=== PATIENT | female | born 1965 | race Hispanic/Latino ===

== ENCOUNTER 2016-11-24 21:53 | Emergency (ER) | payer SELFPAY ==
[~2016-11-24] VITALS: Ht 149.9 cm; Wt 95.4 kg
[~2016-11-24 21:53] MED LIST: CITA20TA PO; PROT40T PO
[2016-11-24 21:54] VITALS: BP 137/81; PULSE 78; RESP 16; O2SAT 98
--- NOTE | 2016-11-24 22:34 | ED.REPORT ---
HPI-Chest Pain 40 and Over Date of Service November 24, 2016 ED Provider: Dr. Hossein Moore D.O. A 51 year old female with a history of hypertension, asthma, and depression presents to the ED reporting chest pain onset two days ago. The pain is described as "pressure," with radiation to her left arm. The patient also reports headache, recent hypertension (over 180 systolic), and bilateral eye redness. She denies other symptoms. Last night the patient took ASA with no relief. She ran out of her hypertension medication some time ago and has been unable to refill her prescription. Nursing Notes Stated Complaint: CHEST PAIN X 2 DAYS Chief Complaint: Chest Pain Nursing Notes Reviewed: Yes Allergies: Coded Allergies: promethazine (Verified Allergy, Intermediate, anxious, 07/02/15) codeine (Verified Allergy, Unknown, 07/02/15) morphine (Unverified Allergy, Unknown, 11/24/16) Uncoded Allergies: NARCOTICS (Allergy, Severe, Shortness of Breath, 01/08/14) SWELLING, SOB Scheduled Citalopram-Expunged Drug, Do Not Renew! (Citalopram-Expunged Drug, Do Not Renew! ) 20 Mg Tablet 20 MG PO DAILY Pantoprazole-Expunged Drug, Do Not Renew! (Protonix-Expunged Drug, Do Not Renew! ) 40 Mg Tablet.dr 20 MG PO DAILY General Time Seen by MD: 22:33 Chief Complaint Chest pain Hx Obtained From: Patient Arrived By: Walk-in Sudden in Onset?: No Onset Occurred: 2 days ago Symptom Duration: Since onset Location: : Chest left: Chest right Quality: Painful, Pressure Radiation: : Arm left Severity: Current: Moderate Severity: Maximum: Moderate Pertinent Negative: Relieved by nothing Context Related History: Reports: Asthma, Hypertension Recent Healthcare: No recent doctor visit Past Medical History Past Medical History Hx HTN- not taking meds b/c her Rx is in [place]. Reports: Asthma, Hypertension Reports: Depression, Urinary tract infection Past Surgical History Reports: Appendectomy Smoking History Never Smoker Social History Alcohol Use: Denies alcohol use Drug Use: Denies drug use Other Social History: Good social support Ambulatory Status Independent Review of Systems Review of Systems Note: + Hypertension (over 180 systolic) Constitutional: Denies: Fever Respiratory: Denies: Non-productive cough, Shortness of breath Cardiovascular: Reports: Chest pain GI: Denies: Diarrhea, Vomiting Neurologic: Reports: Headache Complete sys rev & neg: except as marked. Eyes: Reports: Redness bilateral Physical Exam Initial Vital Signs Vital Signs (First) Date Time Temp Pulse Resp B/P Pulse Ox O2 Delivery O2 Flow Rate FiO2 11/24/16 21:54 36.7 78 16 137/81 98 Room Air Initial VS: Reviewed Head / Eyes: Atraumatic, Normocephalic, PERRL ENT: Conjunctiva normal, No scleral icterus Neck: Supple, Full range of motion Skin: Warm, Dry, No cyanosis Neurologic: Alert, Oriented, Nonfocal Psychiatric: Mood/affect normal, Behavior normal, Normal thought content General/Constitutional: Awake, Alert, No acute distress Respiratory / Chest: Breath sounds NL, Breath sounds = bilat, No respiratory distress Cardiovascular: Heart rate NL, Regular rhythm, Heart sounds NL Abdomen: Soft, Non-tender Interpretation & Diagnostics Lab Results Interpretation Result Diagram: 11/24/168 11/24/16 2258 Test 11/24/16 22:58 11/25/16 01:50 White Blood Count 9.2th/mm3 (3.8-10.1) Red Blood Count 4.17mil/mm3 (3.90-5.20) Hemoglobin 12.3g/dL (12.0-15.6) Hematocrit 36.6% (35.0-46.0) Mean Corpuscular Volume 87.8fL (81-100) Mean Corpuscular Hemoglobin 29.5pg (27.0-35.0) Mean Corpuscular Hemoglobin Concent 33.6% (32.0-37.0) Red Cell Distribution Width 12.7% (12.3-15.4) Platelet Count 239bil/L (150-400) Neutrophils (%) (Auto) 61.4% (40-74) Lymphocytes (%) (Auto) 30.7% (14-46) Monocytes (%) (Auto) 5.4% (4-12) Eosinophils (%) (Auto) 2.3% (0-5) Basophils (%) (Auto) 0.1% (0-3) D-Dimer 0.59mg/L FEU (<0.50) Sodium Level 140mEq/L (134-144) Potassium Level 3.7mEq/L (3.5-5.2) Chloride Level 102mEq/L (97-108) Carbon Dioxide Level 26mmol/L (18-29) Blood Urea Nitrogen 12mg/dL (6-24) Creatinine 0.47mg/dL (0.57-1.00) Estimat Glomerular Filtration Rate 199mL/min (>59) Glucose Level 146mg/dL (60-99) Calcium Level 9.0mg/dL (8.5-10.1) Magnesium Level 2.1mg/dL (1.6-2.6) Total Bilirubin 0.3mg/dL (0.0-1.2) Aspartate Amino Transf (AST/SGOT) 19U/L (0-50) Alanine Aminotransferase (ALT/SGPT) 18U/L (0-32) Alkaline Phosphatase 83U/L (25-150) Total Protein 6.8g/dL (6.4-8.4) Albumin 3.7g/dL (3.4-5.0) Hold Pardo Top Tube Received (Received) Troponin T 0.010ug/L (0.0-0.011) ECG Interpretation ECG Interpretation: Sinus rhythm rate 77 Probable LVH Time: 22:02 Interpreted by: ED physician ECG Interpretation: Sinus rhythm rate 75 Low voltage, precordial leads No significant changes from previous Time: 02:51 Interpreted by: ED physician X-Ray Chest Interpretation Chest Xray Interpretation: Normal View: Portable, 1 view Interpretation / Wet Read by: Wet read ED physician CT Head Interpretation CONCLUSION: No acute intracranial abnormality. Report transmitted to ED by Steph Tijerina M.D at 11/24/2016 - 11:32:17 AM PDT Study: Head CT no contrast Interpretation / Wet Read by: Interpret - Radiologist CT Chest Interpretation IMPRESSION: No acute occlusive PE. Atherosclerotic disease. Mild groundglass attenuation with areas of air trapping seen with small airway disease. No pulmonary consolidation or mass. Other findings above. Report transmitted to ED by radiologist Steph Tijerina M.D. at 11/25/2016 - 12:48:50 AM PDT Study type: CT pulm angiogram Interpretation / Wet Read by: Interpret - Radiologist Re-Eval/Medical Decision Med Decision/Clinical Course Myocardial infarction ruled out with serial EKGs and troponins. Pulmonary emboli ruled out with CT angios. She is coughing and there is a question of some airspace disease will place her on Zithromax. I discussed with her that she needs to have a follow-up of a lesion on her right kidney. We have given referral to primary care here in town as well as a driver messenger and they can follow-up of this and set up dedicated imaging for the kidney lesion. Otherwise complete the course of antibiotics return if any problems or any new or worsening symptoms. Source of Hx: Old records Time of Eval: 02:08 Patient Status: Condition improved Re-Evaluation/Progress Note: Discussed with patient CT, x-ray, and lab results, diagnosis, and plan for discharge. Follow-up and return to the ER instructions given. Patient agrees with plan for care and all questions were addressed. Counseled Regarding: Diagnosis, Lab results, Need for follow-up, When/why to return to ED Discharge & Departure Shift Change Sign-Out Response to Therapy: Improved Primary Impression: Chest pain Chest pain type: chest pain on breathing Qualified Code: R07.1 - Chest pain on breathing Additional Impression: Headache Headache type: unspecified Headache chronicity pattern: acute headache Intractability: not intractable Qualified Code: R51 - Headache Disposition: Home Discharge Condition All VS Reviewed: Yes Condition: Improved Patient Instructions: Acute Headache (GEN), Chest Pain (ED) Additional Instructions: The heart blood tests were normal. The CAT scan demonstrated airspace disease in the lungs which could be an infection. You will also need to have a follow- up of the lesion seen on her kidney. Finish the Z-Marlo. Motrin as directed for pain. Set up a follow-up with the referral clinic and driver messenger. Return if any problems or any new or worsening symptoms. Watch her blood pressure closely. If it remains persistently elevated she will need to be back on blood pressure medications. Los anlisis de nelly en el corazn fueron normales. La tomografa computarizada demostr dayanara enfermedad del espacio areo en los pulmones que podr a ser dayanara infeccin. Tambin necesitar tener un seguimiento de la lesin vista en hoskins rin. Termine el Z-Marlo. Motrin segn lo indicado para el dolor. Establecer un seguimiento con la clnica de referencia y el cardilogo. Regresar si hay problemas o sntomas nuevos o que empeoran. Starla hoskins presin arterial de cerca. Si permanece persistentemente elevada, tendr que estar de vuelta en los medicamentos para la presin arterial. Referrals: NOPCP (PCP) Clement Farooq MD [facility] Scribe Attestation Portions of this note were transcribed by Hiral De Guzman. I, Dr. Moore, personally performed the history, physical exam, and medical decision-making; I reviewed and confirmed the accuracy of the information in the transcribed note. Signed by: Chantal Estrella, 11/25/2016, 03:35 copies to: Clement Farooq MD; [facility] Hossein Moore DO November 24, 2016 22:34 HIRAL DE GUZMAN November 24, 2016 22:54
[2016-11-24 23:02] VITALS: BP 146/86; PULSE 71; RESP 20; O2SAT 99
[2016-11-24 23:39] VITALS: BP 151/74; PULSE 76; RESP 22; O2SAT 96
[2016-11-24 23:39] LABS: TROPONIN T 0.01 ug/L (0.0-0.011)
[2016-11-24 23:47] LABS: BASOPHILS % (AUTO) 0.1 % (0-3); EOSINOPHILS % (AUTO) 2.3 % (0-5); MONOCYTES % (AUTO) 5.4 % (4-12); Mean Corpuscular Hemoglobin 29.5 pg (27.0-35.0); Mean Corpuscular Volume 87.8 fL (81-100); NEUTROPHILS % (AUTO) 61.4 % (40-74); Platelet Count 239 bil/L (150-400)
[2016-11-24 23:50] LABS: Magnesium 2.1 mg/dL (1.6-2.6)
[2016-11-25 00:56] VITALS: BP 127/75; PULSE 78; RESP 16; O2SAT 98
[2016-11-25] MEDS ORDERED: Albuterol-Ipratropium 3 mL Inhalation Solution NEB ONE (01:00)
[2016-11-25 01:12] VITALS: PULSE 79; RESP 18; O2SAT 98
[2016-11-25 03:18] VITALS: BP 112/68; PULSE 90; RESP 14; O2SAT 98
--- NOTE | 2016-11-25 08:00 | DRSVH ---
PROCEDURE: CT ANGIO CHEST PULMONARY EMBOLISM ([id number]) INDICATIONS: chest pain and short of breath, elevated ddimer TECHNIQUE: After the administration of intravenous contrast, 2 mm thick sections acquired from the pulmonary api jj to the posterior costophrenic angles. 3-dimensional maximum intensity projection (MIP) coronal a nd sagittal reformats were then acquired through the thorax. For radiation dose reduction, the follo wing was used: automated exposure control, adjustment of mA and/or kV according to patient size. COMPARISON: None. FINDINGS: Image quality: Excellent. Pulmonary arteries: Pulmonary arteries are normal in size, and demonstrate no intraluminal filling d efects to suggest central pulmonary embolism. Lungs and pleura: Lungs are clear. No pleural effusions or pneumothorax. Central and peripheral ai rways are patent. Mediastinum: Heart size is normal, without pericardial effusion. No mediastinal or hilar adenopathy . Thoracic aorta is normal in caliber and enhancement. Esophagus is normal in caliber, without hiat al hernia. Bones and chest wall: No suspicious bony lesions. Ribs and thoracic spine appear intact throughout. Thyroid gland is within normal limits. No axillary or supraclavicular adenopathy. Abdomen: 8.7 x 5.3 x 7.5 cm fat-containing lesion in the left suprarenal abdomen likely represents a n adrenal myolipoma. Visualized upper abdominal solid organs appear normal in the early arterial phas e of enhancement. IMPRESSION: 1. No pulmonary embolus. 2. Probable large left adrenal myelolipoma, however other fat-containing neoplastic processes includi ng liposarcoma cannot be differentiated by imaging alone. Dictated by: Kristie Menchaca MD, PhD on 11/25/2016 at 7:52 Approved by: Kristie Menchaca MD, PhD on 11/25/2016 at 7:58
--- NOTE | 2016-11-25 08:28 | DRSVH ---
PROCEDURE: CT BRAIN WITHOUT CONTRAST ([id number]) INDICATIONS: headache, hypertension TECHNIQUE: Noncontrast 4.5 mm thick angled axial sections acquired from the foramen magnum to the vertex, with c oronal reformats. COMPARISON: None. FINDINGS: Image quality: Excellent. CSF spaces: Basal cisterns are patent. No extra-axial fluid collections. Ventricles are normal in size and shape. Brain: No midline shift. No intracranial masses or hemorrhage. Barry-white matter interface is norm al. Skull and face: Calvarium and visualized facial bones are intact, without suspicious lesions. Sinuses: Visualized sinuses and mastoids are clear. IMPRESSION: No acute intracranial disease process. Dictated by: Kristie Menchaca MD, PhD on 11/25/2016 at 8:25 Approved by: Kristie Menchaca MD, PhD on 11/25/2016 at 8:27
--- NOTE | 2016-11-25 09:05 | DRSVH ---
PROCEDURE: X-RAY CHEST ONE VIEW, PORTABLE ([id number]) INDICATIONS: chest pain TECHNIQUE: One view of the chest was acquired. COMPARISON: [facility], , CHEST 1VW (PORTABLE), 09/28/2012, 1:46. FINDINGS: Surgical changes and devices: None. Lungs and pleura: No pleural effusions or pneumothorax. Lungs are clear. Mediastinum: Mediastinal contours appear normal. Heart size is normal. Bones and chest wall: No suspicious bony lesions. Overlying soft tissues appear unremarkable. IMPRESSION: No acute cardiopulmonary disease process. Dictated by: Kristie Menchaca MD, PhD on 11/25/2016 at 9:03 Approved by: Kristie Menchaca MD, PhD on 11/25/2016 at 9:04
== END 2016-11-25 03:26 | disposition home or self-care (01) ==
LOC: SED 21:53
DX: R07.1 Chest pain on breathing (principal); R51 Headache; I10 Essential (primary) hypertension; J45.909 Unspecified asthma, uncomplicated; F32.9 Major depressive disorder, single episode, unspecified; N28.9 Disorder of kidney and ureter, unspecified; Z88.8 Allergy status to other drugs, medicaments and biological substances; Z87.440 Personal history of urinary (tract) infections; Z88.5 Allergy status to narcotic agent
CPT/HCPCS: 36415; 70450; 71010; 71275; 80053; 83735; 84484; 85025; 85378; 93005; 94664; 99285; J7620; Q9967

== ENCOUNTER 2017-03-26 18:26 | Emergency (ER) | payer SELFPAY ==
--- NOTE | 2017-03-26 18:36 | ED.REPORT ---
HPI-Chest Pain 40 and Over Date of Service Mar 26, 2017 ED Provider: Robby Brown DO Pt is a 51 year old female with a history of hypertension who presents to the ED via EMS c/o progressively worsening chest pain onset 1500 today while cleaning her bathroom. She has had chest pain for about one month that worsened today. She described her pain as radiating to her left arm, left-side of jaw, and mid back which was 10/10 severity at its worst, 7/10 after getting nitro by EMS, and is 5/10 now with nitro paste on in the ED. She states that her pain is exacerbated by trying to sit up and bend over, and she couldn't even talk during the worst part of her episode. Additional symptoms include SOB, fatigue, headache, diaphoresis, increased gas, vomting and nausea for which she received medication by her PCP. Pt reports having an adrenal cyst that was benign, that is scheduled to be operated on in [place] in future. Nursing Notes Stated Complaint: CHEST PAIN Nursing Notes Reviewed: Yes Allergies: Coded Allergies: promethazine (Verified Allergy, Intermediate, anxious, 07/02/15) codeine (Verified Allergy, Unknown, 07/02/15) morphine (Unverified Allergy, Unknown, 11/24/16) Uncoded Allergies: NARCOTICS (Allergy, Severe, Shortness of Breath, 01/08/14) SWELLING, SOB Scheduled Citalopram-Expunged Drug, Do Not Renew! (Citalopram-Expunged Drug, Do Not Renew! ) 20 Mg Tablet 20 MG PO DAILY Pantoprazole (Pantoprazole DR) 40 Mg Tablet.dr 40 MG PO DAILY Pantoprazole-Expunged Drug, Do Not Renew! (Protonix-Expunged Drug, Do Not Renew! ) 40 Mg Tablet.dr 20 MG PO DAILY Scheduled PRN Ondansetron ODT (Zofran ODT) 4 Mg Tablet 4 MG PO Q4H PRN PRN For Nausea General Time Seen by MD: 18:36 Chief Complaint Chest pain Hx Obtained From: Patient Arrived By: Ambulance Sudden in Onset?: Yes Onset Occurred: 1 - 4 hours ago Symptom Duration: Constant Location: : Substernal Quality: Painful Radiation: : Arm left: Back: Jaw Severity: Current: Pain level 5 out of 10 Severity: Maximum: Pain level 10 out of 10 Exacerbated by: Movement Relieved by: Nitroglycerin - EMS x 2 Recent Healthcare: No recent hospitalization, Recent doctor visit Similar Sx Previous: No Risk Factors )( CAD Risk Stratification Family history Hypertension Risk factors reviewed )( TAD Risk Stratification Hypertension Risk factors reviewed )( PE Risk Stratification Risk factors reviewed Past Medical History Past Medical History Hx HTN- not taking meds b/c her Rx is in [place]. Reports: Asthma, Hypertension Reports: Depression, Urinary tract infection Past Surgical History Reports: Appendectomy Family History Aunt and Uncle had heart problems Parents only had hypertension Smoking History Never Smoker Social History Alcohol Use: Denies alcohol use Drug Use: Denies drug use Other Social History: Good social support Ambulatory Status Independent Review of Systems Increased gas Constitutional: Reports: Fatigue Respiratory: Reports: Shortness of breath Cardiovascular: Reports: Chest pain GI: Reports: Nausea, Vomiting Skin: Reports Diaphoresis Neurologic: Reports: Headache Complete sys rev & neg: except as marked. Physical Exam Initial Vital Signs Vital Signs (First) Date Time Temp Pulse Resp B/P Pulse Ox O2 Delivery O2 Flow Rate FiO2 03/26/17 18:40 36.8 81 18 125/72 96 Room Air Initial VS: Reviewed Head / Eyes: Atraumatic, Normocephalic Neck: Supple, Full range of motion Extremities: Vascular intact, Neuro intact, No swelling, No tenderness Skin: Warm, Dry, No cyanosis Neurologic: Alert, Oriented, Nonfocal Psychiatric: Mood/affect normal, Behavior normal, Normal thought content General/Constitutional: Awake, Alert Respiratory / Chest: Atraumatic, Breath sounds NL, Breath sounds = bilat, No respiratory distress, No chest tenderness Cardiovascular: Heart rate NL, Regular rhythm, Heart sounds NL No significant leg edema Abdomen: Atraumatic, Soft Tenderness/Guarding/Rebound: Positive: Tender epigastric Interpretation & Diagnostics Lab Results Interpretation Result Diagram: 03/26/17 1848 03/26/17 1848 Test 03/26/17 18:48 03/26/17 20:19 White Blood Count 10.5th/mm3 (3.8-10.1) Red Blood Count 4.48mil/mm3 (3.90-5.20) Hemoglobin 13.3g/dL (12.0-15.6) Hematocrit 38.8% (35.0-46.0) Mean Corpuscular Volume 86.6fL (81-100) Mean Corpuscular Hemoglobin 29.7pg (27.0-35.0) Mean Corpuscular Hemoglobin Concent 34.3% (32.0-37.0) Red Cell Distribution Width 12.6% (12.3-15.4) Platelet Count 224bil/L (150-400) Neutrophils (%) (Auto) 59.3% (40-74) Lymphocytes (%) (Auto) 33.6% (14-46) Monocytes (%) (Auto) 5.5% (4-12) Eosinophils (%) (Auto) 1.2% (0-5) Basophils (%) (Auto) 0.2% (0-3) D-Dimer 0.58mg/L FEU (<0.50) Sodium Level 141mEq/L (134-144) Potassium Level 4.0mEq/L (3.5-5.2) Chloride Level 102mEq/L (97-108) Carbon Dioxide Level 23mmol/L (18-29) Blood Urea Nitrogen 17mg/dL (6-24) Creatinine 0.55mg/dL (0.57-1.00) Estimat Glomerular Filtration Rate 166mL/min (>59) Glucose Level 89mg/dL (60-99) Calcium Level 9.2mg/dL (8.5-10.1) Magnesium Level 2.1mg/dL (1.6-2.6) Total Bilirubin 0.3mg/dL (0.0-1.2) Aspartate Amino Transf (AST/SGOT) 20U/L (0-50) Alanine Aminotransferase (ALT/SGPT) 17U/L (0-32) Alkaline Phosphatase 85U/L (25-150) Total Protein 7.7g/dL (6.4-8.4) Albumin 4.2g/dL (3.4-5.0) Troponin T < 0.010ug/L (0.0-0.011) Pro-B-Type Natriuretic Peptide 74.97pg/mL (0-249) Lipase 43U/L (13-60) ECG Interpretation ECG Interpretation: Sinus rhythm, rate 83 T wave flattening in lateral leads T wave inversion in lead 3 Unchanged from previous on 11/25/16 Time: 18:40 Interpreted by: ED physician X-Ray Chest Interpretation Chest Xray Interpretation: IMPRESSION: No radiographic evidence of acute cardiopulmonary pathology. Dictated by: Ranjit Friedman M.D. on 03/26/2017 at 19:55 Approved by: Ranjit Friedman M.D. on 03/26/2017 at 19:56 View: Portable, 1 view Interpretation / Wet Read by: Interpret - Radiologist CT Chest Interpretation IMPRESSION: 1. No acute pulmonary emboli. 2. Large predominantly fat containing left adrenal mass most consistent with an adrenal myolipoma. No change in recommendation for a 6 month followup adrenal protocol abdomen pelvis CT which is due in July 2017. Dictated by: Ranjit Friedman M.D. on 03/26/2017 at 20:49 Approved by: Ranjit Friedman M.D. on 03/26/2017 at 20:55 Study type: CT pulm angiogram Interpretation / Wet Read by: Interpret - Radiologist Re-Eval/Medical Decision Med Decision/Clinical Course 51-year-old female with a history of adrenal mass, hypertension, and reported family history of coronary artery disease presents with chest pain while walking in [facility] today. Her cardiac workup appears reassuring with serial troponins returning negative and no EKG findings suggestive of acute ischemia. CT PE ruled out a pulmonary embolus and redemonstrated the adrenal mass, which is scheduled for surgery in [place] the near future. Blood pressure was significantly elevated and improved somewhat with nitroglycerin paste. Chest pain persisted despite this and was not responsive to Ativan or a GI cocktail. Toradol was the medication and finally alleviated her chest pain. It does not sound pleuritic in nature. I am uncertain the cause of her pain but feel confident we have ruled out acute or life-threatening dangerous causes of chest pain. She was advised that she needs to have a stress test in the next few weeks, as well as a possible GI consultation to evaluate gastric causes of her lower chest/upper epigastric pain. Source of Hx: Old records Time of Eval: 22:53 Re-Evaluation/Progress Note: Pt rechecked. She states that she still has 7/10 chest pain and doesn't know why. She is pointing to her epigastric area for her pain now. Time of Eval: 23:57 Patient Status: Condition improved Re-Evaluation/Progress Note: Patient rechecked. Discussed plan for discharge. Patient understands and agrees with plan. F/U instructions and RTER warnings given. All questions addressed at this time. Counseled Regarding: Diagnosis, Lab results, Need for follow-up, When/why to return to ED Discharge & Departure Primary Impression: Chest pain Chest pain type: unspecified Qualified Code: R07.9 - Chest pain, unspecified Additional Impressions: Epigastric abdominal pain Shortness of breath Disposition: Home Discharge Condition All VS Reviewed: Yes Condition: Stable Patient Instructions: Chest Pain (ED) Additional Instructions: Thank you for entrusting us with your medical care tonight. Your emergency room visit tonight included an interview, physical exam, an EKG, chest x-ray, chest CT and upper abdominal CT, and treatment for nausea and pain with Toradol and Zofran. Your chest pain initially improved somewhat on nitroglycerin. Your adrenal mass appears stable on CT. There was no evidence of heart attack, pneumonia, pneumothorax, pulmonary embolus. Please follow-up with your primary care provider, call tomorrow for an appointment to continue this workup to determine the cause of your pain. There is no dangerous causes identified here. Other considerations could include gastroenterology evaluation with endoscopy to look for gastritis/ulcer. Also given your family history and the symptoms today, I believe that a stress test in the next week or 2 is important. Please take Protonix 40 mg daily and use ibuprofen as needed for severe pain, as you are allergic to narcotics and Toradol was helpful here. Return to the ER if you develop new or worsening symptoms. Casimiro por confiarnos callaway atencin mdica esta noche. [place]away visita a la teresa de emergencias esta noche incluy dayanara entrevista, examen f sico, EKG, radiografa de trax, TC de trax y TC abdominal superior y tratamiento para nuseas y dolor con Toradol y Zofran. El dolor en el pecho inicialmente mejor algo con nitroglicerina. [place]away masa suprarrenal parece estable en la TC. No hubo evidencia de ataque cardaco, neumona, neumotrax, mbolo pulmonar. Por favor, siga con callaway proveedor de atencin primaria, llame maana para dayanara ayan para continuar con jocelin estudio para determinar la causa de callaway dolor. No hay causas peligrosas identificadas aqu. Otras consideraciones podran incluir la evaluacin gastroenterologa con endoscopia para buscar gastritis / lcera. Tambin dado callaway historial familiar y los sntomas de hoy, creo que dayanara prueba de estrs en la prxima semana o 2 es importante. Por favor, tome Protonix 40 mg al da y use ibuprofen shira sea necesario para el dolor roberto, ya que usted es alrgico a narcticos y Toradol fue til aqu. Regrese a la teresa de emergencias si presenta sntomas nuevos o que empeoran. GI Consult: Dr. Servin Referrals: Pollo Loera MD (PCP) Scribe Attestation Portions of this note were transcribed by Nataly Alarcon. I, Dr. Brown, personally performed the history, physical exam and medical decision-making; I reviewed and confirmed the accuracy of the information in the transcribed note. copies to: Pollo Loera MD, Gary R DO Mar 26, 2017 18:36 Nataly Alarcon Mar 26, 2017 19:15
[2017-03-26 18:40] VITALS: BP 125/72; PULSE 81; RESP 18; O2SAT 96
[2017-03-26] MEDS ORDERED: Nitroglycerin 2% 1 Gm Ointment TOPICAL ONE (18:50)
[2017-03-26 18:51] LABS: BASOPHILS % (AUTO) 0.2 % (0-3); EOSINOPHILS % (AUTO) 1.2 % (0-5); MONOCYTES % (AUTO) 5.5 % (4-12); Mean Corpuscular Hemoglobin 29.7 pg (27.0-35.0); Mean Corpuscular Volume 86.6 fL (81-100); NEUTROPHILS % (AUTO) 59.3 % (40-74); Platelet Count 224 bil/L (150-400)
[2017-03-26 19:05] LABS: TROPONIN T < 0.010 ug/L (0.0-0.011)
[2017-03-26 19:15] LABS: Magnesium 2.1 mg/dL (1.6-2.6)
[2017-03-26] MEDS ORDERED: LidocaineVisc 2%:Antacid 1:1 10 mL Syringe PO ONE (19:50)
[2017-03-26] MEDS ORDERED: LORazepam 0.5 mg Tablet PO ONE (19:55)
--- NOTE | 2017-03-26 19:58 | DRSVH ---
PROCEDURE: X-RAY CHEST ONE VIEW, PORTABLE ([id number]) INDICATIONS: CHEST PAIN TECHNIQUE: One view of the chest was acquired. COMPARISON: [facility], CR, XR CHEST 1VW (PORTABLE[facility] 11[facility]07[facility] 09/28/2012, 1:46. FINDINGS: Surgical changes and devices: None. Lungs and pleura: No pleural effusions or pneumothorax. Lungs are clear. Mediastinum: Mediastinal contours appear normal. Heart size is normal. Bones and chest wall: No suspicious bony lesions. Overlying soft tissues appear unremarkable. IMPRESSION: No radiographic evidence of acute cardiopulmonary pathology. Dictated by: Ranjit Friedman M.D. on 03/26/2017 at 19:55 Approved by: Ranjit Friedman M.D. on 03/26/2017 at 19:56
--- NOTE | 2017-03-26 20:56 | DRSVH ---
PROCEDURE: CT ANGIO CHEST PULMONARY EMBOLISM ([id number]) INDICATIONS: sob, chest pain TECHNIQUE: After the administration of intravenous contrast, 2 mm thick sections acquired from the pulmonary api jj to the posterior costophrenic angles. 3-dimensional maximum intensity projection (MIP) coronal a nd sagittal reformats were then acquired through the thorax. For radiation dose reduction, the follo wing was used: automated exposure control, adjustment of mA and/or kV according to patient size. COMPARISON: None. FINDINGS: Image quality: Excellent. Pulmonary arteries: Pulmonary arteries are normal in size, and demonstrate no intraluminal filling d efects to suggest central pulmonary embolism. Lungs and pleura: Lungs are clear. No pleural effusions or pneumothorax. Central and peripheral ai rways are patent. Mediastinum: Heart size is normal, without pericardial effusion. No mediastinal or hilar adenopathy . Thoracic aorta is normal in caliber and enhancement. Esophagus is normal in caliber, without hiat al hernia. Bones and chest wall: No suspicious bony lesions. Ribs and thoracic spine appear intact throughout. Thyroid gland is normal. No axillary or supraclavicular adenopathy. Abdomen: Partially visualized predominantly fat-containing large left adrenal mass measuring at leas t 9.1 CM. Fatty infiltration of the liver. IMPRESSION: 1. No acute pulmonary emboli. 2. Large predominantly fat containing left adrenal mass most consistent with an adrenal myolipoma. N o change in recommendation for a 6 month followup adrenal protocol abdomen pelvis CT which is due in July 2017. Dictated by: Ranjit Friedman M.D. on 03/26/2017 at 20:49 Approved by: Ranjit Friedman M.D. on 03/26/2017 at 20:55
[2017-03-26 21:34] VITALS: BP 112/61; PULSE 72; RESP 23; O2SAT 97
[2017-03-26] MEDS ORDERED: Ondansetron 2 mg/mL 2 mL Inj IVPUSH ONE (23:30)
[2017-03-27] MEDS ORDERED: PANT40TA3 PO (00:15)
[2017-03-27] MEDS ORDERED: ONDA4TAB9 PO (00:15)
[2017-03-27 01:10] VITALS: BP 105/48; PULSE 79; RESP 18; O2SAT 97
== END 2017-03-27 01:20 | disposition home or self-care (01) ==
LOC: SED 18:26
DX: R07.2 Precordial pain (principal); R06.02 Shortness of breath; R10.13 Epigastric pain; R53.83 Other fatigue; R11.2 Nausea with vomiting, unspecified; R61 Generalized hyperhidrosis; R51 Headache; R14.3 Flatulence; I10 Essential (primary) hypertension; J45.909 Unspecified asthma, uncomplicated; F32.9 Major depressive disorder, single episode, unspecified; Z87.440 Personal history of urinary (tract) infections; Z90.89 Acquired absence of other organs; Z88.5 Allergy status to narcotic agent; Z88.8 Allergy status to other drugs, medicaments and biological substances
CPT/HCPCS: 36415; 71010; 71275; 80053; 83690; 83735; 83880; 84484; 85025; 85378; 93005; 96374; 96375; 99285; J1885; J2405; Q9967